=== PATIENT | female | born 1960 | race Caucasian/White ===

== ENCOUNTER 2017-07-02 16:15 | Emergency (ER) | payer BC ==
[2017-07-02 16:34] VITALS: TEMP 98.1
[2017-07-02] MEDS ORDERED: predniSONE 20 MG TAB PO ONE (16:38)
[2017-07-02] MEDS ORDERED: HYDROcodone 5MG/APAP 325MG 1 EA TAB PO ONE (16:38)
--- NOTE | 2017-07-02 17:36 | RAD ---
EXAM DESCRIPTION: Chest,2 Views CLINICAL HISTORY:56 years Female, fall with right lateral rib pain Comparison: None FINDINGS: No focal lung consolidation. No pleural effusion. No pneumothorax. Cardiac and mediastinal silhouette is unremarkable. No acute osseous abnormality. Soft tissues are unremarkable. IMPRESSION: No acute findings. No focal lung consolidation. Electronically signed by: Declan Ballesteros MD 07/02/2017 5:35 PM CDT
[2017-07-02 17:56] VITALS: BP 146/83; O2SAT 100
--- NOTE | 2017-07-02 18:11 | ED.PDOC ---
History of Present Illness - General Chief Complaint: Back Pain or Injury Stated Complaint: post fall x 2 days/back pain Time Seen by Provider: 07/02/17 16:20 Source: patient Exam Limitations: no limitations - History of Present Illness Initial Comments: The patient is a 56-year-old female presenting to the emergency room secondary to right lateral thoracic pain that is worse in spasms. The patient strained it a couple of days ago when she slipped on a wet surface. Today she made a wrong move and pain got really bad. No shortness of breath. Pain is worse with palpation of the right lateral rib cage. No crepitus. No deformity. No central back pain. She is neurovascularly intact. No anterior chest pain. Timing/Duration: 24 hours Severity: moderate Improving Factors: nothing Worsening Factors: nothing Associated Symptoms: denies symptoms Allergies/Adverse Reactions: Allergies NO KNOWN ALLERGY Allergy (Verified 07/02/17 16:37) Home Medications: Ambulatory Orders Zfhgvxslntebk-Ndfd-Brrspjbbbe [Fioricet] 1 ea PO Q8H PRN #21 tab 07/02/17 predniSONE [Prednisone] 20 mg PO DAILY #5 tab 07/02/17 Review of Systems - Review of Systems Constitutional: States: no symptoms reported EENTM: States: no symptoms reported Respiratory: States: no symptoms reported Cardiology: States: no symptoms reported Gastrointestinal/Abdominal: States: no symptoms reported Genitourinary: States: no symptoms reported Musculoskeletal: States: see HPI Skin: States: no symptoms reported Neurological: States: no symptoms reported All other Systems: No Change from Baseline Past Medical History (General) - Patient Medical History Hx Seizures: No Hx Stroke: No Hx Dementia: No Hx Asthma: No Hx of COPD: No Hx Cardiac Disorders: No Hx Congestive Heart Failure: No Hx Pacemaker: No Hx Hypertension: Yes Hx Thyroid Disease: Yes - hypothyroidism Hx Diabetes: No Hx Gastroesophageal Reflux: No Hx Renal Disease: No Hx Cancer: No Hx of HIV: No Hx Hepatitis C: No Hx MRSA: No Surgical History: Hysterectomy - Vaccination History Hx Influenza Vaccination: No Hx Pneumococcal Vaccination: No - Social History Hx Tobacco Use: Yes Hx Depression: Yes - Triage Comment ED Triage Comment: Patient states she missed a step and fell 2 days ago and today she turned wrong and twisted her back. States she feels like her back "blew out". having severe back pain. Family Medical History - Family History Mother Family History: Unknown Physical Exam - Physical Exam General Appearance: Alert, No apparent distress Eye Exam: bilateral normal Ears, Nose, Throat: hearing grossly normal, normal ENT inspection Neck: full range of motion, supple Respiratory: lungs clear, normal breath sounds, no respiratory distress, no accessory muscle use, other - ight lateral mid to lower chest wall is uncomfortable to palpation. Cardiovascular/Chest: normal peripheral pulses, regular rate, rhythm, no edema Peripheral Pulses: radial,right: 2+, radial,left: 2+ Gastrointestinal/Abdominal: non tender, soft Rectal Exam: deferred Back Exam: normal inspection, no CVA tenderness Extremity: normal range of motion, non-tender, normal inspection, no pedal edema , normal capillary refill Neurologic: car stower II-XII nml as tested, alert, normal mood/affect, oriented x 3 Skin Exam: normal color Comments: Vital Signs - 24 hr 07/02/17 07/02/17 16:29 17:55 Temperature 98.1 F Pulse Rate [ 91 H 80 monitor] Respiratory 18 16 Rate Blood Pressure 161/94 146/83 [lefgt arm] O2 Sat by Pulse 99 100 Oximetry Progress - Progress Progress: 07/02/17 18:08 the patient's a 56-year-old female presenting to the emergency room secondary to right lateral thoracic pain. This is most likely musculoskeletal in fact most likely an intercostal muscle strain. The patient will be placed on prednisone 20 mg daily for the next 5 days. She has Valium at home and uses a muscle relaxer as needed. She will also be written for Fioricet for as needed use. She does need to do some stretching to help prevent further spasm. Chest x-ray here failed to show any evidence of any fracture or pneumothorax. ER warnings were given for any significant worsening. Departure - Departure Clinical Impression: Intercostal muscle strain Qualifiers: Encounter type: initial encounter Qualified Code(s): S29.011A - Strain of muscle and tendon of front wall of thorax, initial encounter Disposition: Discharge to Home or Self Care Condition: Fair Departure Forms: ED Discharge - Pt. Copy, Patient Portal Self Enrollment Instructions: DI for Back Strain or Sprain Diet: regular diet Activity: increase activity as tolerated Referrals: Arnol Luu MD [Primary Care Provider] - 1-2 Weeks Prescriptions: Uoasbziklnris-Jpsx-Pmpwekouko [Fioricet] 1 ea PO Q8H PRN #21 tab PRN Reason: Pain predniSONE [Prednisone] 20 mg PO DAILY #5 tab Home Medications: Ambulatory Orders Qclobmpgcljsi-Jkfg-Rlbznueqbf [Fioricet] 1 ea PO Q8H PRN #21 tab 07/02/17 predniSONE [Prednisone] 20 mg PO DAILY #5 tab 07/02/17 Additional Instructions: the patient's a 56-year-old female presenting to the emergency room secondary to right lateral thoracic pain. This is most likely musculoskeletal in fact most likely an intercostal muscle strain. The patient will be placed on prednisone 20 mg daily for the next 5 days. She has Valium at home and uses a muscle relaxer as needed. She will also be written for Fioricet for as needed use. She does need to do some stretching to help prevent further spasm. Chest x-ray here failed to show any evidence of any fracture or pneumothorax. ER warnings were given for any significant worsening.
== END 2017-07-02 18:20 | disposition home or self-care (01) ==
LOC: ER 16:15
DX: S29.011D Strain of muscle and tendon of front wall of thorax, subsequent encounter (principal); I10 Essential (primary) hypertension; E03.9 Hypothyroidism, unspecified; Z87.891 Personal history of nicotine dependence; W19.XXXD Unspecified fall, subsequent encounter
CPT/HCPCS: 71046; J7512

== ENCOUNTER → 2017-08-29 | Outpatient (CLI) | payer BC ==
--- NOTE | 2017-08-30 16:11 | MAM ---
EXAM DESCRIPTION: 3D Screening BILATERAL : Digital Mammography. CLINICAL HISTORY: 56 years Female SCREENING . No complaints. No family history of breast cancer. Childbirth. Postmenopausal. No HRT. COMPARISON: Baseline study at this facility. No prior reports available. TECHNIQUE: Bilateral CC and MLO projection full-field images, 3-D tomosynthesis digital mammographic technique. CAD not utilized. FINDINGS: The breast parenchymal density pattern is: Scattered areas of fibroglandular density. No skin thickening or nipple retraction. Bilateral axillary lymph nodes. Bilateral solitary microcalcifications. Focal asymmetry less than 1 cm in diameter at the 300-330 clock position of the mid right breast, 4 cm from the nipple. Possible calcifications. No new focal, stellate mass or density, focal asymmetry , and no suspicious microcalcifications left breast. IMPRESSION: BI-RADS CATEGORY: 0 - INCOMPLETE- Need additional imaging evaluation. FOLLOW-UP: Recall for additional imaging: Bilateral full-field 3-D tomosynthesis LM images of the breasts. Digital focal spot magnification of the region of interest, right breast, in the CC and LM projections. Targeted right breast ultrasound if indicated by diagnostic images.. Written communication concerning the IMPRESSION and Follow-up, will be mailed to the patient and referring health care provider. Electronically signed by: Lobito Hernandez MD 08/30/2017 4:10 PM CDT
== END ==
LOC: MAMMO 11:41
PROVIDERS: ATTEND Family Medicine
DX: Z12.31 Encounter for screening mammogram for malignant neoplasm of breast (principal); E03.9 Hypothyroidism, unspecified

== ENCOUNTER → 2017-10-02 | Outpatient (CLI) | payer BC, OTHER ==
--- NOTE | 2017-10-02 15:40 | US ---
EXAM DESCRIPTION: Breast,Right: Ultrasound CLINICAL HISTORY: 56 yearsFemaleABN MAMMO. Focal asymmetry upper inner quadrant middle third right breast. COMPARISON: Digital breast tomosynthesis bilateral 08/29/2017. TECHNIQUE: Transcutaneous scanning of the right breast utilizing merida-scale and Doppler modes. Scanning performed by the manager balance and Dr. Hernandez. FINDINGS: Scanning of the upper inner quadrant of the right breast with emphasis on the 100 clock position, 4 cm from the nipple. Heterogeneous fibroglandular and fatty echotexture. No distinct solid mass or cyst. No large calcifications or parenchymal edema. No overlying skin changes. No abnormal vascularity. IMPRESSION: Benign exam BIRAD CATEGORY: 2 BENIGN FINDINGS. RECOMMENDATIONS: FOLLOW UP: Routine digital bilateral screening, one year interval from August 2017. The FINDINGS and the FOLLOW-UP plan were reviewed in person with the patient after the examination. Written communication explaining the IMPRESSION and FOLLOW-UP will be mailed to the patient and referring care provider. According to the [employer], yearly mammograms are recommended starting at age 40 and continuing as long as a woman is in good health. Any breast change noted on a breast self-exam should be reported promptly to the patient's healthcare provider. Breast MRI is recommended for women with an approximately 20-25% or greater lifetime risk of breast cancer, including women with a strong family history of breast or ovarian cancer and women who have been treated for Hodgkin's disease. A negative mammographic report should not delay tissue diagnosis in patients with significant clinical history or physical findings. Extremely dense breast tissue limits the sensitivity of digital mammography. Electronically signed by: Lobito Hernandez MD 10/02/2017 3:39 PM CDT
== END ==
LOC: MAMMO 09:57
PROVIDERS: ATTEND Family Medicine
DX: R92.8 Other abnormal and inconclusive findings on diagnostic imaging of breast (principal)

== ENCOUNTER → 2020-02-20 | Outpatient (CLI) | payer BC ==
--- NOTE | 2020-02-23 08:08 | RAD ---
EXAM DESCRIPTION: Knee,Right 2 Views (accession [id number]), Knee,Left 2 Views (accession [id number]) CLINICAL HISTORY: 59 years, Female, BILATERAL OSTEOARTHRITIS OF KNEES COMPARISON: None TECHNIQUE: Two x-ray views of the right knee Two x-ray views of the left knee FINDINGS: Right Degenerative narrowing of the medial compartment. Spurring of tibial spines. Mild spurring of the medial joint line. No fracture or dislocation. Lateral view of the right knee shows narrow patellofemoral joint with posterior patellar spurring. Mild anterosuperior patellar enthesopathy. No joint effusion is evident. Degenerative spurring at the femoral condyles dorsally. Mild degenerative spurring at the tibial surface. Left Frontal view of the left knee shows narrowing of the medial and lateral compartments with tibial spine spurring. Mild spurring at the medial joint line. No fracture or dislocation. Lateral view shows minimal posterosuperior patellar spurring with mild anterior superior patellar enthesopathy. No joint effusion is evident. IMPRESSION: Degenerative changes as described. Electronically signed by: Poncho Hedrick MD 02/23/2020 8:07 AM [facility]
--- NOTE | 2020-02-23 08:09 | RAD ---
EXAM DESCRIPTION: Knee,Right 2 Views (accession [id number]), Knee,Left 2 Views (accession [id number]) CLINICAL HISTORY: 59 years, Female, BILATERAL OSTEOARTHRITIS OF KNEES COMPARISON: None TECHNIQUE: Two x-ray views of the right knee Two x-ray views of the left knee FINDINGS: Right Degenerative narrowing of the medial compartment. Spurring of tibial spines. Mild spurring of the medial joint line. No fracture or dislocation. Lateral view of the right knee shows narrow patellofemoral joint with posterior patellar spurring. Mild anterosuperior patellar enthesopathy. No joint effusion is evident. Degenerative spurring at the femoral condyles dorsally. Mild degenerative spurring at the tibial surface. Left Frontal view of the left knee shows narrowing of the medial and lateral compartments with tibial spine spurring. Mild spurring at the medial joint line. No fracture or dislocation. Lateral view shows minimal posterosuperior patellar spurring with mild anterior superior patellar enthesopathy. No joint effusion is evident. IMPRESSION: Degenerative changes as described. Electronically signed by: Poncho Hedrick MD 02/23/2020 8:07 AM [facility]
== END ==
LOC: RAD 13:32
PROVIDERS: ATTEND Nurse Practitioner Family
DX: M17.0 Bilateral primary osteoarthritis of knee (principal)